=== PATIENT | male | born 1980 | race African-American/Black ===

== ENCOUNTER → 2019-04-21 | Outpatient (CLI) | payer OTHER ==
[2015-01-12 13:35] VITALS: BP 167/92
--- NOTE | 2019-04-21 17:24 | KCIC ---
STUDY: MRI of the right elbow without contrast INDICATION: Distal biceps injury. Pain at the anteromedial elbow. COMPARISON: None. TECHNIQUE: Multiplanar MR imaging of the right elbow performed without the use of intravenous or intra-articular contrast. FINDINGS: Bones/cartilage: No acute fracture. Chondral loss seen at the ulnar margin of the radial head with a focal area of subchondral cystic change, image 18 series 9. Mild partial thickness chondrosis at the ulnotrochlear joint. Alignment is maintained. Musculotendinous: Complete tearing of the biceps brachii from its radial tuberosity insertion in conjunction with tearing of the lacertus fibrosis which results in marked retraction of the tendon stump which is located approximate centimeters from the expected radial insertion, reference image 7 series 10. The redundant tendon stump is tendinotic and surrounded by hemorrhage. The brachialis is intact. The triceps is intact. Mild common extensor tendinosis without tear. No tear of the common flexor origin. Ligaments: Small amount of T2 hyperintense fluid signal subjacent to the ulnar collateral ligament anterior band along the sublime tubercle felt unlikely to represent a tear. The rest of the ulnar collateral ligament complex is intact. The radial collateral ligament, lateral ulnar collateral ligament and annular ligament are intact. Nerves: Unremarkable ulnar nerve. Reactive edema/hemorrhage along the median nerve without obvious mass effect by a well-defined hematoma. Miscellaneous: No significant elbow joint effusion. IMPRESSION: 1. Complete biceps brachii tear from the radial tuberosity with concomitant tearing of the lacertus fibrosis which allows for retraction of the redundant tendon stump by approximately 8 cm. The torn stump fibers are heterogeneous and irregular compatible with background tendinosis. No additional tendon tear seen at the elbow. 2. Extensive edema about the elbow as well as hemorrhage along the torn tendon extending into the bicipital radial bursa. This edema/hemorrhage is in close proximity to the median nerve but the nerve is without obvious displacement. 3. Mild common extensor tendinosis. 4. Chondrosis with faint subchondral cystic change along the ulnar margin of the radius. Electronically signed by: JONATHON ALLISON MD (04/21/2019 5:21 PM) [facility]
== END | disposition home or self-care (01) ==
LOC: KCIC MRI 13:04
PROVIDERS: ATTEND Orthopaedic Surgery
DX: S46.211A Strain of muscle, fascia and tendon of other parts of biceps, right arm, initial encounter (principal); X58.XXXA Exposure to other specified factors, initial encounter; Y93.89 Activity, other specified; Y92.89 Other specified places as the place of occurrence of the external cause; Y99.8 Other external cause status
CPT/HCPCS: 73221

== ENCOUNTER → 2020-08-13 | Outpatient (CLI) | payer OTHER ==
[2015-01-12 13:35] VITALS: BP 167/92
[~2020-08-13] MED LIST: AMLO-187 PO; HYDR-2765 PO; MULT-730 PO; NABU500T7 PO; OMEG-117 PO; PROM25TA10 PO; TEST200V3 IM
== END ==
LOC: LAB 12:30
PROVIDERS: ATTEND Orthopaedic Surgery
DX: Z01.812 Encounter for preprocedural laboratory examination (principal); Z20.822 Contact with and (suspected) exposure to COVID-19; S83.231A Complex tear of medial meniscus, current injury, right knee, initial encounter; X58.XXXA Exposure to other specified factors, initial encounter; Y93.89 Activity, other specified; Y92.89 Other specified places as the place of occurrence of the external cause; Y99.8 Other external cause status
CPT/HCPCS: U0003

== ENCOUNTER 2020-08-16 12:55 | Day surgery (SDC) | payer OTHER ==
--- NOTE | 2020-08-15 19:28 | PDOC1 ---
History and Physical Date of Admission Date of Admission 08/16/2020 Identification/Chief Complaint Chief Complaint Right knee pain Source Source: Chart review, Patient History of Present Illness History of Present Illness 39-year-old man with right knee pain. 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 He brings with him an MRI (under CORRECT name "Flor") that is shown below. Patient describes an injury 6-8 months ago after taking a "weird step" and noticing a catching and pop in his knee. Following this, his pain has somewhat gotten better although he notices persistent medial knee pain with popping/instability that is exacerbated by going down stairs or flexion of his knee. His PCP prescribed 6 weeks of physical therapy although he doesn't believe this helped and it was too expensive. Of note, he has pain in multiple other joints (wrists, knees) for which he takes nabumetone. Former smoker (quit 4 years ago). Past Medical History Past Medical History Knee pain. Hypertension. Hypogonadism. Past Surgical History Past Surgical History Right Arm Surgery 04/2019 Family History Family History Father: diagnosed with Hypertension, Cancer Family History: Cancer, Hypertension Social History Smoke: No ALCOHOL: occassional Current Medications Current Medications Current Medications Fentanyl Citrate (Fentanyl 2ml Vial) 25 mcg PRN Q5MIN PRN IVP MILD PAIN 1-3; Start 08/16/20 at 06:00; Stop 08/17/20 at 05:59 Fentanyl Citrate (Fentanyl 2ml Vial) 50 mcg PRN Q5MIN PRN IVP MODERATE PAIN 4- 6; Start 08/16/20 at 06:00; Stop 08/17/20 at 05:59 Morphine Sulfate (Morphine Sulfate) 1 mg PRN Q10MIN PRN IVP SEVERE PAIN 7-10; Start 08/16/20 at 06:00; Stop 08/17/20 at 05:59; Status UNV Ringer's Solution 1,000 ml @ 30 mls/hr Q24H IV ; Start 08/16/20 at 06:00; Stop 08/16/20 at 17:59 Hydromorphone HCl (Dilaudid) 0.5 mg PRN Q10MIN PRN IVP SEVERE PAIN 7-10, 2nd CHOICE; Start 08/16/20 at 06:00; Stop 08/17/20 at 05:59; Status UNV Prochlorperazine Edisylate (Compazine) 5 mg PACU PRN PRN IVP NAUSEA, MRX1; Start 08/16/20 at 06:00; Stop 08/17/20 at 05:59 Cefazolin Sodium/ Dextrose 50 ml @ 100 mls/hr 1X PREOP PRN IV PRIOR TO PROCEDURE; Start 08/16/20 at 06:00; Stop 08/16/20 at 18:00 Active Scripts Active Reported Men's Multivitamin Tablet (Multivit-Min/Folic/Vit K/Lycop) 1 Each Tablet 1 Each PO DAILY Fish Oil 1,200 mg Softgel ([place]-3/Dha/Epa/Fish Oil) 1 Each Capsule.dr 300 Mg PO DAILY Testosterone Cypionate 200 Mg/1 Ml Vial 50 Mg IM Q4WK Nabumetone 500 Mg Tablet 500 Mg PO PRN 1-2XD PRN Amlodipine Besylate 10 Mg Tablet 10 Mg PO DAILY Allergies Allergies: Coded Allergies: tramadol (Verified Allergy, Severe, Swelling, 08/12/20) SWELLING IN NECK Physical Exam General: Alert, Cooperative HEENT: Atraumatic Lungs: Normal air movement Heart: RRR Abdomen: Soft Extremities: Other ( The RIGHT knee shows normal alignment, no masses and no effusion. There is minimal tenderness at the medial joint line and an equivocal medial Tashi's test (popping but no pain). The lateral joint line shows no tenderness. Range of motion is 0-135 degrees. There is trace patellofemoral crepitus. Tashi's test is positive. There is medial joint line pain with deep flexion and especially with rotation of the tibia. The knee is stable to varus and valgus stress without subluxation or laxity. The ACL feels intact on [place] testing. Muscle strength is normal (5/5) for quadriceps and hamstrings, and muscle tone is normal. The skin is normal with no scars, rashes, lesions or ulcers. Light touch sensation is intact. No edema and no varicosities. Dorsalis pedis pulse is intact and capillary refill is normal.) Neuro: Normal speech, Sensation intact Images Images Reports reviewed, Images independently reviewed of the right knee MRI from [facility] on 06/13/20. 0.3T magnet has pixelated images, but despite that the medial meniscus tear can be seen on series 4 coronal proton-density fat-saturated image 9 of 23. Meniscus tear and Abreu's cyst seen on series 6 sagittal STIR images image 5 of 22. MRI RIGHT KNEE WITHOUT CONTRAST: TECHNIQUE: 0.3T MR: Multiplanar/multisequence noncontrast knee protocol. INDICATION: Posterior medial knee pain and swelling for one year. COMPARISON: None FINDINGS: JOINT CAPSULE: A small joint effusion is present. MEDIAL COMPARTMENT: There is horizontal signal intensity in the posterior horn which approaches the inferior articular surface. There is possible vertical signal intensity in the posterior horn. There is mild cartilage thinning along the posterior aspect of the medial compartment without underlying marrow signal abnormality. LATERAL COMPARTMENT: The lateral meniscus exhibits normal signal intensity and morphology. Lateral femoral condylar and tibial plateau hyaline cartilage and bone marrow are within normal limits. PATELLOFEMORAL JOINT: Patellar and trochlear groove hyaline cartilage and bone marrow are within normal limits. The medial and lateral retinacular complex are intact. LIGAMENTS: The anterior cruciate, posterior cruciate, medial collateral and lateral collateral ligament complex exhibit normal signal and morphology. The extensor mechanism exhibits normal signal and morphology. SOFT TISSUE: There is a moderate-sized Bakers cyst with possible rupture of the Bakers cyst. There is probable debris within the Bakers cyst. IMPRESSION: 1. Probable horizontal tear of the posterior horn of the medial meniscus which likely contacts the inferior articular surface with an equivocal vertical component in the posterior horn. 2. Moderate-sized Bakers cyst with possible rupture of the Bakers cyst. 3. Minimal degenerative change of the medial compartment. VTE Prophylaxis Ordered VTE Prophylaxis Devices: Yes VTE Pharmacological Prophylaxi: Yes Assessment/Plan Assessment/Plan His MRI shows a medial meniscus tear. We reviewed his report together and discussed the natural history of the condition as well as the risks, benefits, and alternatives to treatment. Specifically, I explained that he's essentially left with two options: arthroscopic meniscectomy vs nonoperative symptom management with a cortisone injection, therapy, and activity modification. Given his failure of therapy, desired activity level, and doubtful natural resolution of his mechanical symptoms, my recommendation is arthroscopy and meniscectomy. We discussed potential risks of arthroscopic surgery, including risks of bleeding, infection, progressive arthritis, blood clots, or other potential surgical or anesthetic complications. We also discussed postoperative treatment and expectations including temporary restrictions and progression of arthritis following knee arthroscopy. All of his questions were answered and he desires to proceed with surgery Justifications for Admission Other Justification JARED DIEGO MD Aug 15, 2020 19:28
[~2020-08-16] VITALS: Ht 185.4 cm; Wt 103.0 kg
[~2020-08-16 12:55] MED LIST changes: -HYDR-2765 PO; +HYDROmorphone 2 MG/ML VIAL IVP PRN; +IV RINGERS,LACTATED 1000ML 1,000 ML IV SCH; +MORPHINE SULFATE 2 MG/ML VIAL. IVP PRN; +PROCHLORPERAZINE 10 MG/2 ML VIAL. IVP PRN; -PROM25TA10 PO; +fentaNYL PF VIAL 100 MCG/2 ML VIAL IVP PRN
[2020-08-16] MEDS ORDERED: fentaNYL PF VIAL 100 MCG/2 ML VIAL ONE (14:46)
[2020-08-16] MEDS ORDERED: LIDOCAINE 2% PF 5 ML VIAL. ONE (14:47)
[2020-08-16] MEDS ORDERED: ONDANSETRON PF 4 MG/2 ML VIAL. ONE (14:47)
[2020-08-16] MEDS ORDERED: MIDAZOLAM HCL/PF 2 MG/2 ML VIAL. ONE (14:47)
[2020-08-16] MEDS ORDERED: PROPOFOL 10 MG/ML (20ML) VIAL. IV ONE (14:47)
[2020-08-16] MEDS ORDERED: DEXAMETHASONE SOD PHOS 4 MG/ML VIAL ONE (14:48)
[2020-08-16] MEDS ORDERED: BUPIVACAINE-EPI 0.25% 30 ML VIAL KIT. ONE (15:05)
[2020-08-16] MEDS ORDERED: BUPIVACAINE-EPI 0.25% 30 ML VIAL KIT. INJ ONE (15:15)
[2020-08-16] MEDS ORDERED: SEVOFLURANE 61 TO 120 MINUTES. IH ONE (15:37)
[2020-08-16] MEDS ORDERED: KETOROLAC 30 MG/ML VIAL. ONE (15:37)
--- NOTE | 2020-08-16 16:31 | PDOC4 ---
Operative Note Operative Note Date of Procedure: August 16, 2020 Preoperative Diagnosis: right knee medial meniscus tear Postoperative Diagnosis: complex tear medial meniscus, current injury, right knee, initial encounter, S83.231A Procedures Performed: right knee arthroscopy, surgical, with meniscectomy, MEDIAL, including meniscal shaving, including debridement/shaving of articular cartilage (chondroplasty) CPT 29156 Surgeon: Jared Adair MD Ceramic Plater: Balta DENNIS Anesthesia: General Estimated Blood Loss: 10 mL Specimens: none Drains: none Complications: none Tourniquet time: 19 minutes at 300 mm Hg Indications for Procedure: The patient is a 39-year-old with right knee pain, unrelieved with nonoperative treatment. Exam and MRI are consistent with a meniscus tear. We talked about the risks and benefits of proceeding with an arthroscopic procedure. We talked about potential risks of ongoing pain, progressive arthritis, bleeding, infection, blood clots, or other potential surgical or anesthetic complications. All of the patient's questions about surgery were answered and they desired to proceed. Written consent was obtained. Description of Operation: The patient was identified in the preoperative holding area. The correct right knee was marked by me. The patient was taken to the operating room, where a general anesthetic was used. Preoperative antibiotics were given intravenously. A time-out procedure was performed. A tourniquet was placed on the upper thigh. Local anesthetic 20 mL of 0.25% bupivacaine was injected using sterile technique into the knee joint. The limb was prepared circumferentially with ChloraPrep solution and sterile waterproof arthroscopy drapes were applied. The limb was exsanguinated with an Esmarch bandage and the tourniquet was inflated. Lateral and medial arthroscopy portals were established. The medial meniscus showed a complex unrepairable tear with unstable flaps. 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 The ACL is very thin and very lax to probing, and does not have a normal attachment to the lateral femoral condyle, all of which appears chronic in nature. I suspect a remote injury to the ACL with high grade partial tearing. This was not appreciated on the preop MRI. The lateral tibiofemoral joint showed a normal lateral meniscus, so no lateral meniscectomy was required.The lateral articular surfaces showed normal articular surfaces so no chondroplasty was required. The patellofemoral joint showed chondromalacia [place] grade II, so a shaving chondroplasty was performed removing loose unstable fragments of articular cartilage. The suprapatellar pouch, medial and lateral gutters were free of loose bodies. Copious irrigation was used to drain all meniscal and chondral fragments, and the knee was drained of fluid. The portals were closed with #3-0 Prolene interrupted sutures. Additional local anesthetic, 30 mL of 0.25% bupivacaine with epinephrine was injected. A bulky sterile dressing was applied and the tourniquet was released. Needle and sponge counts were correct and there were no apparent complications. JARED ADAIR MD Aug 16, 2020 16:31
[2020-08-16] MEDS ORDERED: HYDROcodone/APAP 7.5/325MG 1 TAB TABLET PO ONE ×2 (17:00)
[2020-08-16] MEDS ORDERED: PROM25TA10 PO (17:04)
[2020-08-16] MEDS ORDERED: HYDR-2765 PO (17:04)
[2020-08-16 17:17] VITALS: BP 125/77
== END 2020-08-16 17:56 | disposition home or self-care (01) ==
LOC: SURG 12:55 → MERGE 15:45 → SURG 17:56
PROVIDERS: ATTEND Orthopaedic Surgery
DX: S83.231A Complex tear of medial meniscus, current injury, right knee, initial encounter (principal); I10 Essential (primary) hypertension; M19.90 Unspecified osteoarthritis, unspecified site; F17.210 Nicotine dependence, cigarettes, uncomplicated; Z79.899 Other long term (current) drug therapy; Z98.890 Other specified postprocedural states; Z82.49 Family history of ischemic heart disease and other diseases of the circulatory system; X58.XXXA Exposure to other specified factors, initial encounter; Y93.89 Activity, other specified; Y92.89 Other specified places as the place of occurrence of the external cause; Y99.8 Other external cause status
CPT/HCPCS: 29881; J0690; J1100; J1885; J2250; J2405; J2704; J3010; J7120